=== PATIENT | female | born 1950 | race African-American/Black ===

== ENCOUNTER 2019-04-13 11:12 | Emergency (ER) | payer MEDICARE, OTHER ==
[~2019-04-13] VITALS: Ht 167.6 cm; Wt 100.0 kg
[~2019-04-13 11:12] MED LIST: AMLO5TAB88 MT; APIX2.5T MT; ASCO500C15 MT; DOCU-138 MT; FAMO-135 MT; GABA-529 MT; HYDR-4005 PO; IBUP-2029 PO; LACO50TA2 MT; LISI10TA5 MT; MULT1TAB67 MT
[2019-04-13] MEDS ORDERED: NYSTATIN 100,000 UNITS/GM CREAM 15GM TOP ONE (13:45)
[2019-04-13 13:58] LABS: BASOPHILS % 0.7 % (0.0-2.0); EOSINOPHILS % 2.8 % (0.0-5.0); HEMATOCRIT. 35.6 % (36.0-48.0); HEMOGLOBIN. 11.8 g/dL (12.0-16.0); LYMPHOCYTES % 29.9 % (20.0-50.0); MEAN CORPUSCULAR HEMOGLOBIN 30.7 pg (28.0-32.0); MEAN CORPUSCULAR VOLUME 92.8 fL (81.0-99.0); MEAN PLATELET VOLUME 9.4 fl (7.4-10.4); MONOCYTES % 9.2 % (2.0-8.0); NEUTROPHILS % 57.4 % (40.0-76.0); PLATELET 238 x1000/uL (130-400); RED BLOOD CELL COUNT 3.83 mill/uL (4.2-5.4); RED CELL DISTRIBUTION WIDTH 15.5 % (11.6-14.6)
[2019-04-13 14:04] LABS: CHLORIDE 105 mEq/L (98-107)
[2019-04-13 15:06] LABS: PROTHROMBIN TIME 10.5 sec (9.6-11.0)
[2019-04-13 17:05] VITALS: BP 163/91
== END 2019-04-13 17:23 | disposition home or self-care (01) ==
LOC: ER 11:12
DX: L30.9 Dermatitis, unspecified (principal); B37.2 Candidiasis of skin and nail; E86.0 Dehydration; I10 Essential (primary) hypertension; F20.9 Schizophrenia, unspecified; G40.909 Epilepsy, unspecified, not intractable, without status epilepticus; I69.354 Hemiplegia and hemiparesis following cerebral infarction affecting left non-dominant side; Z79.01 Long term (current) use of anticoagulants
CPT/HCPCS: 36415; 99283